=== PATIENT | male | born 1995 | race African-American/Black ===

== ENCOUNTER 2024-04-15 19:03 | Emergency (ER) | payer OTHER, SELFPAY ==
[2024-04-15] MEDS ORDERED: Lidocaine 1% (PF) 30 ML VIAL ONE (19:27)
== END 2024-04-15 19:52 | disposition home or self-care (01) ==
LOC: CSHERS 19:03
DX: L02.31 Cutaneous abscess of buttock (principal)
CPT/HCPCS: 10060; J2001

== ENCOUNTER 2024-04-24 13:04 | Emergency (ER) | payer SELFPAY ==
[2024-04-24] MEDS ORDERED: Lidocaine 1% w/Epinephrine 1:200K 30 ML VIAL ONE (13:34)
== END 2024-04-24 14:30 | disposition home or self-care (01) ==
LOC: CSHERS 13:04
DX: L02.31 Cutaneous abscess of buttock (principal)
CPT/HCPCS: 10060; 87070; 87205